=== PATIENT | female | born 1955 | race African-American/Black ===

== ENCOUNTER 2019-03-16 18:48 | Emergency (ER) | payer MEDICAID ==
[~2019-03-16] VITALS: Ht 162.6 cm; Wt 77.0 kg
[2019-03-16] MEDS ORDERED: HYDROCODONE/APAP 7.5/325MG 1 TAB TABLET PO ONE (19:30)
[2019-03-16] MEDS ORDERED: CLONIDINE 0.1MG TABLET PO ONE (19:30)
[2019-03-16] MEDS ORDERED: LORAZEPAM 1MG TABLET PO ONE (19:45)
[2019-03-16 19:51] LABS: CLARITY URINE CLEAR (CLEAR); COLOR URINE YELLOW (YELLOW); KETONES URINE NEGATIVE (NEGATIVE); LEUKOCYTE ESTERASE URINE NEGATIVE (NEGATIVE); NITRITE URINE NEGATIVE (NEGATIVE); OCCULT BLOOD URINE 2+ (NEGATIVE); PH URINE 5.5 (4.5-8.0); PROTEIN URINE 4+ (NEGATIVE); SPECIFIC GRAVITY URINE 1.017 (1.005-1.030); UROBILINOGEN URINE 0.2 E.U./dL (0.2-1.0)
[2019-03-16 19:52] LABS: EOSINOPHILS % 2.8 % (0.0-5.0); HEMATOCRIT. 26.6 % (36.0-48.0); HEMOGLOBIN. 8.6 g/dL (12.0-16.0); LYMPHOCYTES % 12.8 % (20.0-50.0); MEAN CORPUSCULAR HEMOGLOBIN 25.6 pg (28.0-32.0); MEAN CORPUSCULAR VOLUME 79.7 fL (81.0-99.0); MEAN PLATELET VOLUME 6.9 fl (7.4-10.4); MONOCYTES % 11.6 % (2.0-8.0); NEUTROPHILS % 71.8 % (40.0-76.0); PLATELET 275 x1000/uL (130-400); RED BLOOD CELL COUNT 3.34 mill/uL (4.2-5.4)
[2019-03-16 19:58] LABS: CHLORIDE 114 mEq/L (98-107)
[2019-03-16 20:02] LABS: ETHANOL BLOOD < 10 mg/dL
[2019-03-16 20:12] LABS: *AMPHETAMINES SCREEN URINE NEGATIVE (NEGATIVE); *BARBITURATES SCREEN URINE NEGATIVE (NEGATIVE); *BENZODIAZEPINES SCREEN URINE NEGATIVE (NEGATIVE); *COCAINE SCREEN URINE NEGATIVE (NEGATIVE)
[2019-03-16 20:13] LABS: CANNABINOID URINE SCREEN NEGATIVE (NEGATIVE); METHADONE URINE SCREEN NEGATIVE (NEGATIVE); OPIATES URINE SCREEN NEGATIVE (NEGATIVE); PHENCYCLIDINE URINE SCREEN NEGATIVE (NEGATIVE)
[2019-03-16 20:40] LABS: PLATELET ESTIMATE NORMAL
[2019-03-16] MEDS ORDERED: CLONIDINE 0.2MG TABLET PO ONE (21:45)
[2019-03-16] MEDS ORDERED: HYDRALAZINE HCL 50MG TABLET PO ONE (22:45)
[2019-03-17 00:15] VITALS: BP 204/86
== END 2019-03-17 03:34 | disposition home or self-care (01) ==
LOC: ER 18:48
DX: I10 Essential (primary) hypertension (principal); M54.5 Low back pain; N19 Unspecified kidney failure; N20.0 Calculus of kidney; E11.9 Type 2 diabetes mellitus without complications; Z98.890 Other specified postprocedural states
CPT/HCPCS: 36415; 74176; 80053; 80305; 80320; 81003; 83690; 83880; 84484; 85025; 93005; 99284; Z7610; G0480

== ENCOUNTER 2019-03-21 00:12 | Emergency (ER) | payer MEDICAID ==
[~2019-03-21] VITALS: Ht 172.7 cm; Wt 65.0 kg
[2019-03-21] MEDS ORDERED: HYDROCODONE/ACETAMINOPHEN 10/325MG TABLET PO SCH (01:15)
[2019-03-21] MEDS ORDERED: ACETAMINOPHEN 500MG TABLET PO ONE (02:15)
[2019-03-21] MEDS ORDERED: ATENOLOL 100 MG TABLET PO ONE (03:15)
[2019-03-21 04:27] VITALS: BP 217/96
== END 2019-03-21 04:31 | disposition home or self-care (01) ==
LOC: ER 00:12
DX: S00.03XA Contusion of scalp, initial encounter (principal); E11.9 Type 2 diabetes mellitus without complications; I10 Essential (primary) hypertension; W01.198A Fall on same level from slipping, tripping and stumbling with subsequent striking against other object, initial encounter; Y93.9 Activity, unspecified; Y92.9 Unspecified place or not applicable; Z88.8 Allergy status to other drugs, medicaments and biological substances
CPT/HCPCS: 70450; 73080; 99284; Z7610

== ENCOUNTER 2019-05-03 18:18 | Emergency (ER) | payer MEDICAID ==
[~2019-05-03] VITALS: Ht 167.6 cm; Wt 80.0 kg
[2019-05-03] MEDS ORDERED: IBUPROFEN 600MG TABLET PO ONE (20:15)
[2019-05-03] MEDS ORDERED: TRAMADOL 50MG TABLET PO ONE (20:15)
[2019-05-03 20:40] VITALS: BP 120/59
== END 2019-05-03 21:57 | disposition home or self-care (01) ==
LOC: ER 18:18
DX: S20.211A Contusion of right front wall of thorax, initial encounter (principal); M54.5 Low back pain; V49.49XA Driver injured in collision with other motor vehicles in traffic accident, initial encounter; Y93.89 Activity, other specified; Y92.89 Other specified places as the place of occurrence of the external cause; Y99.8 Other external cause status; I12.0 Hypertensive chronic kidney disease with stage 5 chronic kidney disease or end stage renal disease; E11.22 Type 2 diabetes mellitus with diabetic chronic kidney disease; N18.6 End stage renal disease; Z99.2 Dependence on renal dialysis; Z88.8 Allergy status to other drugs, medicaments and biological substances
CPT/HCPCS: 93005; 99283

== ENCOUNTER 2019-10-24 07:10 | Emergency (ER) | payer MEDICAID | END 2019-10-24 08:16 | disposition left against medical advice (07) | LOC: ER 07:10 | DX: Z53.21 Procedure and treatment not carried out due to patient leaving prior to being seen by health care provider (principal) ==